=== PATIENT | male | born 1980 | race Two or more races ===

== ENCOUNTER 2016-04-29 10:08 | Emergency (ER) | payer SELFPAY ==
[~2016-04-29] VITALS: Ht 162.6 cm; Wt 65.8 kg
[2016-04-29 14:58] VITALS: BP 120/80
--- NOTE | 2016-04-30 14:37 | Emergency Room Report ---
History of Present Illness General Chief Complaint: Alcohol Intoxication Source: Patient Present Illness HPI 35-year-old male presents to ED status EtOH intoxication. Patient was found sleeping on bus when the business supervisor called 911. Upon arrival patient has unsteady gait and slurred speech. Patient with alcohol use. Denies drug use. Denies hitting his head or LOC. Denies nausea or vomiting. Denies abdominal pain. No other aggravating or leading factors. Denies any other associated symptom Patient History Past Medical History: none Past Surgical History: none Pertinent Family History: none Social History: Reports: alcohol use, Denies: drug use, smoking Immunizations: UTD Reviewed Nursing Documentation: PMH: Agreed, PSxH: Agreed Nursing Documentation-PMH Past Medical History: No History, Except For History Of Psychiatric Problem: Yes - etoh abuse Review of Systems All Other Systems: negative except mentioned in HPI Physical Exam Vital Signs Date Time Temp Pulse Resp B/P Pulse Ox O2 Delivery O2 Flow Rate FiO2 04/29/16 10:03 97.9 101 14 126/72 99 Room Air Sp02 EP Interpretation: reviewed, normal General Appearance: no apparent distress, alert, GCS 15, non-toxic Head: normocephalic, atraumatic Eyes: bilateral eye PERRL, bilateral eye normal inspection ENT: hearing grossly normal, normal pharynx, no angioedema, normal voice Neck: full range of motion, supple/symm/no masses Respiratory: chest non-tender, lungs clear, normal breath sounds, speaking full sentences Cardiovascular #1: regular rate, rhythm, no edema Cardiovascular #2: 2+ carotid (R), 2+ carotid (L), 2+ radial (R), 2+ radial (L) , 2+ dorsalis pedis (R), 2+ dorsalis pedis (L) Gastrointestinal: normal bowel sounds, non tender, soft, non-distended, no guarding, no rebound Rectal: deferred Genitourinary: normal inspection, no CVA tenderness Musculoskeletal: back normal, gait/station normal, normal range of motion, non- tender Neurologic: alert, oriented x3, responsive, motor strength/tone normal, sensory intact, speech normal Psychiatric: judgement/insight normal, memory normal, mood/affect normal, no suicidal/homicidal ideation Reflexes: 3+ bicep (R), 3+ bicep (L), 3+ tricep (R), 3+ tricep (L), 3+ knee (R) , 3+ knee (L) Skin: normal color, no rash, warm/dry, well hydrated Lymphatic: no adenopathy Medical Decision Making Diagnostic Impression: Primary Impression: Acute alcoholic intoxication Qualified Codes: F10.129 - Alcohol abuse with intoxication, unspecified ER Course Hospital Course 35-year-old male presents to ED status post EtOH intoxication. found sleeping on bus Clinical course Patient placed on stretcher. Given that patient is able to provide an adequate history, I see no need to check blood work or place an IV. Patient allowed to sleep. My assessment shows no evidence of SI/HI requiring psychiatric evaluation. Patient allowed to rest in now awake alert oriented x3. ambulating without difficulty. Diagnosis - ETOH intoxication stable and discharged to home. Followup with PMD. Return to ED if symptoms recur or worsen Last Vital Signs Date Time Temp Pulse Resp B/P Pulse Ox O2 Delivery O2 Flow Rate FiO2 04/29/16 14:58 97.8 78 16 120/80 98 Room Air Status: improved Disposition: HOME, SELF-CARE Condition: Stable Referrals: NOT CHOSEN IPA/,REFERRING (PCP) Patient Instructions: Alcohol Intoxication JENNYFER HOUSTON M.D. Apr 30, 2016 14:37
== END 2016-04-29 14:59 | disposition home or self-care (01) ==
LOC: EDBD 10:08 → EMR 10:16
DX: F10.129 Alcohol abuse with intoxication, unspecified (principal)
CPT/HCPCS: 99284